=== PATIENT | female | born 1990 | race Two or more races ===

== ENCOUNTER 2017-02-22 12:19 | Emergency (ER) | payer OTHER ==
[2017-02-22 12:34] VITALS: BP 124/73
--- NOTE | 2017-02-22 13:19 | UC ---
Throat Pain/Nasal Bobby HPI - HPI Summary HPI Summary: 26 YO FEMALE WITH SORE THROAT X 2-3 DAYS RUNNY NOSE NO F/C RARE COUGH NO CP OR SOB SCHEDULED FOR REPEAT CS ON 02/28/17 GOOD ACTIVITY NO CTXS - History of Current Complaint Chief Complaint: UCRespiratory Stated Complaint: SORE THROAT Time Seen by Provider: 02/22/17 12:51 Hx Obtained From: Patient Hx Last Menstrual Period: 02/24/14 ?: Yes Onset/Duration: Gradual Onset Severity: Mild Pain Intensity: 4 Pain Scale Used: 0-10 Numeric Cough: Nonproductive - Allergies/Home Medications Allergies/Adverse Reactions: Allergies Allergy/AdvReac Type Severity Reaction Status Date / Time Sulfa Drugs Allergy Intermediate Hives Verified 01/24/17 21:57 Home Medications: Home Medications Acetaminophen [Tylenol] 02/22/17 [History] PMH/Surg Hx/FS Hx/Imm Hx Previously Healthy: Yes - Surgical History Surgical History: Yes Surgery Procedure, Year, and Place: 2005 [place]OS[place] [facility] [place] [facility] [place] 2009 CYSTOSCOPY, RIGHT RETROGRADE, RIGHT URETERAL STENT, [facility] [place]. 2010 [place], [facility] [place] - Family History Known Family History: Positive: Unknown - pt adopted, Other - pt adopted - Social History Alcohol Use: None Substance Use Type: None Smoking Status (MU): Never Smoked Tobacco Have You Smoked in the Last Year: No Review of Systems Constitutional: Negative Skin: Negative Eyes: Negative ENT: Sore Throat, Nasal Discharge Respiratory: Cough Cardiovascular: Negative Gastrointestinal: Negative Genitourinary: Negative Motor: Negative Neurovascular: Negative Musculoskeletal: Negative Neurological: Negative Psychological: Negative Is Patient Immunocompromised?: No All Other Systems Reviewed And Are Negative: Yes Physical Exam Triage Information Reviewed: Yes Appearance: Well-Appearing, No Pain Distress, Well-Nourished Vital Signs: Initial Vital Signs Temp 99.4 F 02/22/17 12:29 Pulse 97 02/22/17 12:29 Resp 18 02/22/17 12:29 BP 124/73 02/22/17 12:29 Pulse Ox 97 02/22/17 12:29 Vital Signs Reviewed: Yes Eyes: Positive: Conjunctiva Clear ENT: Positive: Hearing grossly normal, Uvula midline. Negative: Nasal congestion, Nasal drainage, Tonsillar swelling, Tonsillar exudate Neck: Positive: Supple, Nontender, No Lymphadenopathy Respiratory: Positive: Lungs clear, Normal breath sounds, No respiratory distress, No accessory muscle use Cardiovascular: Positive: RRR, No Murmur Abdominal Exam: Normal Abdomen Description: Positive: Other: - GRAVID UTERUS Musculoskeletal Exam: Normal Neurological: Positive: Alert Psychological Exam: Normal Skin Exam: Normal Throat Pain/Nasal Course/Dx - Differential Dx/Diagnosis Provider Diagnoses: VIRAL URI Discharge - Discharge Plan Condition: Stable Disposition: HOME Patient Education Materials: Pharyngitis (ED) Referrals: No Primary Care Phys,NOPCP [Primary Care Provider] - Additional Instructions: strep test (-) RECHECK FOR NEW OR WORSENING SYMPTOMS
== END 2017-02-22 13:23 | disposition home or self-care (01) ==
LOC: UCEAST 12:19
DX: O99.519 Diseases of the respiratory system complicating pregnancy, unspecified trimester (principal); J06.9 Acute upper respiratory infection, unspecified
CPT/HCPCS: 87651; 99211; G0463

== ENCOUNTER 2017-02-28 08:57 | Inpatient (IN) | payer OTHER ==
[2017-02-28] MEDS ORDERED: ceFOXitin 2 GM IVPREMIX* 2 GM/50 ML BAG IVPB ONE (09:08)
[2017-02-28] MEDS ORDERED: Midazolam* 1 MG/ML 5 ML VIAL (5 MG) ONE (09:30)
[2017-02-28] MEDS ORDERED: KETAMINE HCL* 50 MG/ML 10 ML VIAL ONE (09:30)
[2017-02-28] MEDS ORDERED: fentaNYL* 50 MCG/ML 2 ML VIAL (100 MCG VIAL) ONE (09:30)
[2017-02-28] MEDS ORDERED: Morphine PF AMP (0.5MG/ML)* 5 MG/10 ML AMP ONE (09:30)
[2017-02-28] MEDS ORDERED: Naloxone* 2 MG in NS 0.9% 250 ML* 250 ML IV PRN (10:12)
[2017-02-28] MEDS ORDERED: DiMENhydriNATE IV* 50 MG/ML VIAL IV PUSH PRN (10:12)
[2017-02-28] MEDS ORDERED: PROCHLORPERAZINE INJ 5 MG/ML 2 ML VIAL IV PRN (10:12)
[2017-02-28] MEDS ORDERED: Ondansetron INJ* 2 MG/ML VIAL IV PRN (10:12)
[2017-02-28] MEDS ORDERED: Naloxone* 0.4 MG/ML 1 ML VIAL IV PRN (10:12)
[2017-02-28] MEDS ORDERED: Scopolamine PATCH Remove* 1 NOTE MISC PATCH OFF PRN (10:12)
[2017-02-28] MEDS ORDERED: Scopolamine 1.5 mg* PATCH ONE (10:14)
[2017-02-28] MEDS ORDERED: Ketorolac INJ* 30 MG/ML 1 ML VIAL ONE (10:15)
[2017-02-28] MEDS ORDERED: Phenylephrine INJ* 10 MG/ML 1 ML VIAL (10 MG) ONE (10:15)
[2017-02-28] MEDS ORDERED: Famotidine IV* 10 MG/ML 2 ML (20 mg) ONE (10:15)
[2017-02-28] MEDS ORDERED: EPHEDrine (Pressors)* 50 MG/ML VIAL ONE (10:15)
[2017-02-28] MEDS ORDERED: OXYTOCIN* 10 UNITS/ML 1 ML VIAL ONE (10:15)
[2017-02-28] MEDS ORDERED: Ondansetron INJ* 2 MG/ML VIAL ONE (10:15)
[2017-02-28] MEDS ORDERED: Dexamethasone IV* 4 MG/ML 1 ML (4 MG) ONE (10:15)
[2017-02-28] MEDS ORDERED: fentaNYL* 50 MCG/ML 2 ML VIAL (100 MCG VIAL) IV PRN (10:16)
[2017-02-28] MEDS ORDERED: Glycerin ADULT SUPP PR PRN (10:57)
[2017-02-28] MEDS ORDERED: Dibucaine 1% 28.35 GM TUBE PR PRN (10:57)
[2017-02-28] MEDS ORDERED: Witch Hazel PAD* JAR TOPICAL PRN (10:57)
--- NOTE | 2017-02-28 13:02 | OP ---
DATE OF OPERATION: 02/28/17 - ROOM #[id number]-117 DATE OF : 86 SURGEON: Rodolfo Nj MD [facility] COORDINATOR: Tracy Herron, [employer]. ANESTHESIOLOGIST: Daniel Parker MD ANESTHESIA: Spinal. PRE-OP DIAGNOSES: Intrauterine of 40 weeks with a prior section, BMI of 38 and macrosomia on ultrasound. POST-OP DIAGNOSES: Intrauterine of 40 weeks with a prior section, BMI of 38 and macrosomia on ultrasound. OPERATIVE PROCEDURE: Repeat low transverse caesarean section with vacuum assistance of delivery of the head. ESTIMATED BLOOD LOSS: 600 cc. SPECIMEN SENT TO PATHOLOGY: Cord blood. FLUIDS: She received 2500 cc of IV crystalloid fluid. URINE OUTPUT: 50 cc of clear urine. FINDINGS: Delivery of a male infant weighing 9 pounds 10 ounces with 's of 9 and 9. The uterus, adnexa, bowel, bladder, fallopian tubes and ovaries were within normal limits. The placenta was grossly intact with a 3 vessel cord noted. There were no complications during this procedure. DESCRIPTION OF PROCEDURE: The patient was taken to the operating room, where she was identified. She was placed on the operating table where a spinal anesthetic was obtained without difficulty. She was placed in the supine position with leftward tilt, prepped and draped in a normal sterile fashion. A Pfannenstiel skin incision was made with a knife and extended inferiorly through the fascia. The fascia was nicked in the midline and extended laterally with curved Angulo scissors. This fascia was then grasped superiorly and inferiorly with Shreya clamps and dissected off sharply from the rectus muscle. The rectus muscle was in the midline bluntly. The peritoneum was identified, grasped with pickups, and entered sharply with Metzenbaum and extended superiorly and inferiorly sharply. At this point, a bladder flap was created using Metzenbaum scissors and the bladder was mobilized away from the low uterine segment bluntly. Abdominal retraction ring was inserted. At this point, a low transverse incision was made with a knife, extended laterally with bandage scissors. The amniotic sac was ruptured. The fluid was noted to be clear. The 's head was then brought up to the incision. There was some difficulty removing the head because of its size, so a vacuum was placed on the head and the head was delivered with the vacuum assistance atraumatically. At this point, the rest of the infant's body was then delivered. The cord was clamped and cut and the was handed off to the awaiting wet silk hanger. Cord bloods were obtained. The placenta was removed manually. The uterus was then exteriorized, cleared of all clots and debris. The uterine incision was then closed using 0 Polysorb suture in a running locked fashion with the second imbricating layer of 0 Polysorb suture with good hemostasis noted. The uterus was then returned to the patient's abdomen. The gutters were then cleared of all clot and debris using moist laparotomy sponges. The abdominal retractor ring was removed at this point. The peritoneum was closed using 3-0 Polysorb suture. The fascia was closed using 0 Polysorb suture in a running fashion. The Radha's fascia was closed using interrupted 3-0 sutures and the skin was closed with 4-0 Monocryl subcuticular stitch. The patient tolerated the procedure well. Sponge, lap and needle counts were correct x2. She was then transferred to recovery room area in stable condition. [id number]/[facility] #: [id number] HOLLY
[2017-02-28] MEDS: Docusate CAP* 100 MG PO SCH ×2 (13:09→21:18)
[2017-02-28] MEDS: Simethicone TAB* 80 MG TAB.CHEW PO SCH ×3 (13:09→21:18)
[2017-02-28] MEDS: Ibuprofen TAB* 600 MG PO SCH ×2 (13:10→18:21)
[2017-02-28] MEDS: oxyCODONE/Acetamin 5/325 MG* TAB PO PRN ×2 (13:14→22:41)
[2017-02-28] MEDS: Nalbuphine* 20 MG/ML 1 ML VIAL IV PRN ×2 (13:15→19:53)
[2017-03-01] MEDS ORDERED: Zolpidem TAB* 5 MG PO PRN (01:55)
[2017-03-01] MEDS ORDERED: oxyCODONE/Acetamin 5/325 MG* TAB PO PRN (01:55)
[2017-03-01] MEDS: Ibuprofen TAB* 600 MG PO SCH (02:39)
[2017-03-01] MEDS: Ibuprofen TAB* 600 MG PO PRN ×3 (07:52→20:20)
[2017-03-01] MEDS: Docusate CAP* 100 MG PO SCH ×3 (07:52→20:20)
[2017-03-01] MEDS: Simethicone TAB* 80 MG TAB.CHEW PO SCH ×4 (07:52→20:20)
[2017-03-01] MEDS: oxyCODONE/Acetamin 5/325 MG* TAB PO PRN ×3 (07:53→18:47)
[2017-03-01 09:01] LABS: ABS Basophils 0 10^3/ul (0-0.2); ABS Eosinophils 0 10^3/ul (0-0.6); ABS Lymphocytes 2.5 10^3/ul (1.0-4.8); ABS Monocytes 0.8 10^3/ul (0-0.8); ABS Nucleated RBC 0 10^3/ul; Eosinophil % 0.3 % (0-6); Hematocrit 29 % (35-47); Lymphocyte % 18.6 % (25-47); Mean Corpuscular HGB Conc 34 g/dl (31-36); Mean Corpuscular Hemoglobin 31 pg (27-31); Mean Corpuscular Volume 90 fL (80-97); Mean Platelet Volume 8 um3 (7.4-10.4); Nucleated Red Blood Cells % 0; Platelet Count 228 10^3/ul (150-450); Red Blood Count 3.23 10^6/ul (4.0-5.4); Red Cell Distribution Width 15 % (10.5-15); White Blood Count 13.4 10^3/ul (3.5-10.8)
[2017-03-01] MEDS: Ferrous Gluconate TAB* 324 MG TAB PO SCH ×2 (10:09→20:19)
[2017-03-01] MEDS: Acetaminophen TAB* 325 MG PO PRN (12:05)
[2017-03-02] MEDS: Ibuprofen TAB* 600 MG PO PRN ×3 (02:50→14:51)
[2017-03-02] MEDS: oxyCODONE/Acetamin 5/325 MG* TAB PO PRN ×4 (02:51→21:05)
[2017-03-02] MEDS: Simethicone TAB* 80 MG TAB.CHEW PO SCH ×4 (08:34→21:05)
[2017-03-02] MEDS: Ferrous Gluconate TAB* 324 MG TAB PO SCH ×2 (08:34→21:05)
[2017-03-02] MEDS: Docusate CAP* 100 MG PO SCH ×3 (08:34→21:05)
[2017-03-03] MEDS: oxyCODONE/Acetamin 5/325 MG* TAB PO PRN (01:10)
[2017-03-03] MEDS: Ibuprofen TAB* 600 MG PO PRN ×2 (01:11→08:33)
[2017-03-03] MEDS: Ferrous Gluconate TAB* 324 MG TAB PO SCH (08:33)
[2017-03-03] MEDS: Docusate CAP* 100 MG PO SCH (08:33)
[2017-03-03] MEDS: Acetaminophen TAB* 325 MG PO PRN (08:34)
[2017-03-03] MEDS: Simethicone TAB* 80 MG TAB.CHEW PO SCH (08:34)
[2017-03-03 08:37] VITALS: BP 111/62
== END 2017-03-03 12:45 | disposition home or self-care (01) | DRG 540 ==
LOC: MCHOB 08:57
PROVIDERS: ADMIT Obstetrics & Gynecology; ATTEND Obstetrics & Gynecology
PROC: 4A1HX4Z Monitoring of Products of Conception, Cardiac Electrical Activity, External Approach (ICD-10-PCS; 2017-02-28)
PROC: 10D00Z1 Extraction of Products of Conception, Low, Open Approach (ICD-10-PCS; principal; 2017-02-28 09:00)
DX: O34.211 Maternal care for low transverse scar from previous cesarean delivery (principal); O36.63X0 Maternal care for excessive fetal growth, third trimester, not applicable or unspecified; O48.0 Post-term pregnancy; O90.81 Anemia of the puerperium; Z3A.40 40 weeks gestation of pregnancy; Z37.0 Single live birth; Z88.2 Allergy status to sulfonamides
CPT/HCPCS: 36415; 85025; A9270-GY; J0694; J1100; J1240; J1885; J2250; J2300; J2405; J2590; J3010

== ENCOUNTER 2017-05-07 13:49 | Emergency (ER) | payer OTHER ==
[2017-05-07 15:35] LABS: ABS Basophils 0 10^3/ul (0-0.2); ABS Eosinophils 0.1 10^3/ul (0-0.6); ABS Lymphocytes 1.2 10^3/ul (1.0-4.8); ABS Monocytes 0.4 10^3/ul (0-0.8); ABS Neutrophils 7.5 10^3/ul (1.5-7.7); ABS Nucleated RBC 0 10^3/ul; Hematocrit 39 % (35-47); Hemoglobin 12.6 g/dl (12.0-16.0); Lymphocyte % 12.8 % (25-47); Mean Corpuscular HGB Conc 33 g/dl (31-36); Mean Corpuscular Hemoglobin 29 pg (27-31); Mean Corpuscular Volume 88 fL (80-97); Mean Platelet Volume 7 um3 (7.4-10.4); Nucleated Red Blood Cells % 0.1; Platelet Count 264 10^3/ul (150-450); Red Blood Count 4.38 10^6/ul (4.0-5.4); Red Cell Distribution Width 15 % (10.5-15); White Blood Count 9.2 10^3/ul (3.5-10.8)
[2017-05-07 15:53] LABS: EGFR Non-African American 108.5 (>60)
[2017-05-07] MEDS ORDERED: Ketorolac INJ* 30 MG/ML 1 ML VIAL IV ONE (16:45)
--- NOTE | 2017-05-07 17:56 | RAD ---
CLINICAL HISTORY: Left flank pain COMPARISON: March 09, 2013 TECHNIQUE: Multiple contiguous axial CT scans were obtained of the abdomen and pelvis, without intravenous contrast enhancement. Coronal and sagittal multiplanar reformations are submitted for review. Oral contrast was not administered. FINDINGS: The study is limited by the lack of intravenous contrast. This limits evaluation of the solid organs and vasculature. LUNG BASES: The lung bases are clear. LIVER: The liver is normal in shape, size, contour, and attenuation. BILE DUCTS: There is no intrahepatic or extrahepatic biliary dilatation. GALLBLADDER: The gallbladder is not visualized. Surgical clips are noted in the gallbladder fossa. PANCREAS: The pancreas is normal, without mass or ductal dilatation. SPLEEN: Normal in size and appearance. UPPER GI TRACT: Evaluation of the gastrointestinal tract is limited by incomplete gastric distention. The upper GI tract is unremarkable. SMALL BOWEL AND MESENTERY: The small bowel is normal in contour, course, and caliber. There is no obstruction or dilatation. COLON: The colon is normal in contour, course, caliber. There is no pericolonic inflammatory change. ADRENALS: Normal bilaterally. KIDNEYS: There are multiple renal calyceal stones bilaterally. There is a 0.6 cm calculus of the left renal pelvis. There is mild caliectasis of the upper pole of the left kidney. BLADDER: The bladder is smooth in contour. PELVIC ORGANS: The uterus and adnexa are grossly normal for technique. AORTA: The aorta is normal. IVC: Unremarkable LYMPH NODES: There is no lymphadenopathy by size criteria. ABDOMINAL WALL: There is no evidence for abdominal wall hernia. BONES AND SOFT TISSUES: Unremarkable OTHER: None IMPRESSION: BILATERAL NEPHROLITHIASIS INCLUDING A 0.6 CM CALCULUS OF THE LEFT RENAL PELVIS. THERE IS MILD CALIECTASIS OF THE UPPER POLE OF THE LEFT KIDNEY.
[2017-05-07 18:34] LABS: Urine Appearance Cloudy; Urine Blood 3+ (Negative); Urine Color Yellow; Urine Ketones Trace (Negative); Urine Protein 1+(30 mg/dL) (Negative); Urine Specific Gravity 1.021 (1.010-1.030); Urine Urobilinogen Negative (Negative)
[2017-05-07 19:25] VITALS: BP 117/66
--- NOTE | 2017-05-08 11:52 | ED ---
Elizabeth Bowen Jason, scribed for Segun Garibay MD on 05/07/17 at 1442 . Abdominal Pain/Female - HPI Summary HPI Summary: This patient is a 26 year old F presenting to [facility] accompanied with a chief complaint of left flank pain since today. The patient states she is experiencing abdominal pain in her LLQ that radiates to her back. She includes at times it feels like period cramps and other times its a sharp pain. She has been experiencing a cramping pain for 3 days and the sharp pain started today. The patient rates the pain 0/10 in severity. Symptoms aggravated by nothing. Symptoms alleviated by nothing. Patient reports mild pain when urinating and blood. Patient denies bowel sx. She has not had a menstrual period since giving 2 months ago. Her only surgery is a . - History of Current Complaint Chief Complaint: EDAbdPain Stated Complaint: ABD PAIN Time Seen by Provider: 05/07/17 14:16 Hx Obtained From: Patient Hx Last Menstrual Period: 02/24/14 Onset/Duration: Gradual Onset, Lasting Days - 1 day, Still Present Timing: Constant Pain Intensity: 8 Pain Scale Used: 0-10 Numeric Location: Discrete At: LLQ Radiates: Yes Radiates to: Back Aggravating Factor(s): Nothing Alleviating Factor(s): Nothing Allergies/Adverse Reactions: Allergies Allergy/AdvReac Type Severity Reaction Status Date / Time MS Sulfa Drugs [Sulfa Drugs] Allergy Intermediate Hives Verified 02/28/17 11:37 PMH/Surg Hx/FS Hx/Imm Hx Previously Healthy: No Endocrine/Hematology History: Denies: Hx Diabetes, Hx Thyroid Disease Cardiovascular History: Denies: Hx Hypertension Respiratory History: Reports: Hx Asthma - A CHILD, NO PROBLEMS NOW, Hx Sleep Apnea - HX OF, NO PROBLEM AFTER T&A Denies: Hx Chronic Obstructive Pulmonary Disease (COPD) GI History: Denies: Hx Ulcer History: Reports: Hx Kidney Stones - HX OF - PASSED Sensory History: Reports: Hx Contacts or Glasses - CONTACTS, NO GLASSES Denies: Hx Hearing Aid Opthamlomology History: Reports: Hx Contacts or Glasses - CONTACTS, NO GLASSES Neurological History: Reports: Hx Migraine - OCCASIONAL - Surgical History Surgery Procedure, Year, and Place: 2006 LAPAROSCOPIC CHOLECYST[place]OMY, [facility] [place]. [place]ONSILECTOMY AND ADENOIDECTOMY, [facility] [place]. 2010 CYSTOSCOPY, RIGHT RETROGRADE, RIGHT URETERAL STENT, [facility] [place]. 2009 CSECTION, [facility] [place] Hx Anesthesia Reactions: No - Immunization History Date of Tetanus Vaccine: Unk Date of Influenza Vaccine: None Infectious Disease History: No Infectious Disease History: Denies: Hx Clostridium Difficile, Hx Hepatitis, Hx Human Immunodeficiency Virus (HIV), Hx of Known/Suspected MRSA, Hx Shingles, Hx Tuberculosis, Hx Known/ Suspected VRE, Hx Known/Suspected VRSA, History Other Infectious Disease, Traveled Outside the [place] in Last 30 Days - Family History Known Family History: Positive: Unknown - pt adopted, Other - pt adopted - Social History Alcohol Use: None Substance Use Type: Reports: None Smoking Status (MU): Never Smoked Tobacco Have You Smoked in the Last Year: No Review of Systems Gastrointestinal: Negative - bowel sx Positive: Abdominal Pain - LLQ Positive: flank pain - left, hematuria, pain All Other Systems Reviewed And Are Negative: Yes Physical Exam - Summary Physical Exam Summary: Appearance: The patient is well-nourished in no acute distress and in no acute pain. Skin: The skin is warm and dry and skin color reflects adequate perfusion. HEENT: ~The head is normocephalic and atraumatic. The pupils are equal and reactive. The conjunctivae are clear and without drainage. ~Nares are patent and without drainage. Mouth reveals moist mucous membranes and the throat is without erythema and exudate. The external ears are intact. The ear canals are patent and without drainage. The tympanic membranes are intact. Neck: the neck is supple with full range of motion and non-tender. There are no carotid bruits. ~There is no neck vein distension. Respiratory: Chest is non-tender. ~Lungs are clear to auscultation and breath sounds are symmetrical and equal. Cardiovascular: Heart is regular rate and rhythm. ~There is no murmur or rub auscultated. ~~There is no peripheral edema and pulses are symmetrical and equal. Abdomen: Mild tenderness in the LLQ. ~There are normal bowel sounds heard in all four quadrants and there is no organomegaly palpated. Musculoskeletal: There is no back tenderness noted. ~Extremities are non-tender with full range of motion. ~There is good capillary refill. There is no peripheral edema or calf tenderness elicited. Neurological: Patient is alert and oriented to person, place and time. ~The patient has symmetrical motor strength in all four extremities. ~Cranial nerves are grossly intact. Deep tendon reflexes are symmetrical and equal in all four extremities. Psychiatric: The patient has an appropriate affect and does not exhibit any anxiety or depression. Triage Information Reviewed: Yes Vital Signs On Initial Exam: Initial Vitals Temp Pulse Resp BP Pulse Ox 97.5 F 62 16 135/74 99 05/07/17 13:53 05/07/17 13:53 05/07/17 13:53 05/07/17 13:53 05/07/17 13:53 Vital Signs Reviewed: Yes Diagnostics - Vital Signs Vital Signs Temp Pulse Resp BP Pulse Ox 05/07/17 13:53 97.5 F 62 16 135/74 99 - Laboratory Lab Results: Lab Results 05/07/17 05/07/17 05/07/17 Range/Units 15:21 15:21 15:21 WBC 9.2 (3.5-10.8) 10^3/ul RBC 4.38 (4.0-5.4) 10^6/ul Hgb 12.6 (12.0-16.0) g/dl Hct 39 (35-47) % MCV 88 (80-97) fL MCH 29 (27-31) pg MCHC 33 (31-36) g/dl RDW 15 (10.5-15) % Plt Count 264 (150-450) 10^3/ul MPV 7 L (7.4-10.4) um3 Neut % (Auto) 81.8 (38-83) % Lymph % (Auto) 12.8 L (25-47) % Alger % (Auto) 4.2 (0-7) % Eos % (Auto) 1.0 (0-6) % Baso % (Auto) 0.2 (0-2) % Absolute Neuts (auto) 7.5 (1.5-7.7) 10^3/ul Absolute Lymphs (auto) 1.2 (1.0-4.8) 10^3/ul Absolute Monos (auto) 0.4 (0-0.8) 10^3/ul Absolute Eos (auto) 0.1 (0-0.6) 10^3/ul Absolute Basos (auto) 0 (0-0.2) 10^3/ul Absolute Nucleated RBC 0 10^3/ul Nucleated RBC % 0.1 Sodium 138 (133-145) mmol/L Potassium 3.9 (3.5-5.0) mmol/L Chloride 107 (101-111) mmol/L Carbon Dioxide 25 (22-32) mmol/L Anion Gap 6 (2-11) mmol/L BUN 14 (6-24) mg/dL Creatinine 0.65 (0.51-0.95) mg/dL Est GFR ( Amer) 139.6 (>60) Est GFR (Non-Af Amer) 108.5 (>60) BUN/Creatinine Ratio 21.5 H (8-20) Glucose 108 H (70-100) mg/dL Lactic Acid 0.6 (0.5-2.0) mmol/L Calcium 9.2 (8.6-10.3) mg/dL Total Bilirubin 1.10 H (0.2-1.0) mg/dL AST 41 H (13-39) U/L ALT 60 H (7-52) U/L Alkaline Phosphatase 85 (34-104) U/L C-Reactive Protein 3.75 (< 5.00) mg/L Total Protein 7.1 (6.4-8.9) g/dL Albumin 4.1 (3.2-5.2) g/dL Globulin 3.0 (2-4) g/dL Albumin/Globulin Ratio 1.4 (1-3) Lipase 20 (11.0-82.0) U/L Beta HCG, Quant < 0.60 mIU/mL Urine Color Urine Appearance Urine pH (5-9) Ur Specific [place] (1.010-1.030) Urine Protein (Negative) Urine Ketones (Negative) Urine Blood (Negative) Urine Nitrate (Negative) Urine Bilirubin (Negative) Urine Urobilinogen (Negative) Ur Leukocyte Esterase (Negative) Urine WBC (Auto) (Absent) Urine RBC (Auto) (Absent) Ur Squamous Epith Cells (Absent) Urine Bacteria (Absent) Urine Glucose (Negative) 05/07/17 Range/Units 18:18 WBC (3.5-10.8) 10^3/ul RBC (4.0-5.4) 10^6/ul Hgb (12.0-16.0) g/dl Hct (35-47) % MCV (80-97) fL MCH (27-31) pg MCHC (31-36) g/dl RDW (10.5-15) % Plt Count (150-450) 10^3/ul MPV (7.4-10.4) um3 Neut % (Auto) (38-83) % Lymph % (Auto) (25-47) % Alger % (Auto) (0-7) % Eos % (Auto) (0-6) % Baso % (Auto) (0-2) % Absolute Neuts (auto) (1.5-7.7) 10^3/ul Absolute Lymphs (auto) (1.0-4.8) 10^3/ul Absolute Monos (auto) (0-0.8) 10^3/ul Absolute Eos (auto) (0-0.6) 10^3/ul Absolute Basos (auto) (0-0.2) 10^3/ul Absolute Nucleated RBC 10^3/ul Nucleated RBC % Sodium (133-145) mmol/L Potassium (3.5-5.0) mmol/L Chloride (101-111) mmol/L Carbon Dioxide (22-32) mmol/L Anion Gap (2-11) mmol/L BUN (6-24) mg/dL Creatinine (0.51-0.95) mg/dL Est GFR ( Amer) (>60) Est GFR (Non-Af Amer) (>60) BUN/Creatinine Ratio (8-20) Glucose (70-100) mg/dL Lactic Acid (0.5-2.0) mmol/L Calcium (8.6-10.3) mg/dL Total Bilirubin (0.2-1.0) mg/dL AST (13-39) U/L ALT (7-52) U/L Alkaline Phosphatase (34-104) U/L C-Reactive Protein (< 5.00) mg/L Total Protein (6.4-8.9) g/dL Albumin (3.2-5.2) g/dL Globulin (2-4) g/dL Albumin/Globulin Ratio (1-3) Lipase (11.0-82.0) U/L Beta HCG, Quant mIU/mL Urine Color Yellow Urine Appearance Cloudy Urine pH 7.0 (5-9) Ur Specific [place] 1.021 (1.010-1.030) Urine Protein 1+(30 mg/dl) A (Negative) Urine Ketones Trace A (Negative) Urine Blood 3+ A (Negative) Urine Nitrate Negative (Negative) Urine Bilirubin Negative (Negative) Urine Urobilinogen Negative (Negative) Ur Leukocyte Esterase 1+ A (Negative) Urine WBC (Auto) Trace(0-5/hpf) (Absent) Urine RBC (Auto) 3+(>10/hpf) A (Absent) Ur Squamous Epith Cells Present A (Absent) Urine Bacteria Absent (Absent) Urine Glucose Negative (Negative) Result Diagrams: 05/07/17 15:21 05/07/17 15:21 Lab Statement: Any lab studies that have been ordered have been reviewed, and results considered in the medical decision making process. - CT abdomen/pelvis CT Interpretation Completed By: Radiologist - BILATERAL NEPHROLITHIASIS INCLUDING A 0.6 CM CALCULUS OF THE LEFT RENAL PELVIS. THERE IS MILD CALIECTASIS OF THE UPPER POLE OF THE LEFT KIDNEY. ED physician has reviewed this radiology report. Abdominal Pain Fem Course/Dx - Course Course Of Treatment: Ms. Del Rio presented with left flank pain and hematuria about two months post . She has not had a period yet. Her U/A was negative for infection. CT showed a 6mm left UPJ stone. She may not be able to pass this and I suggested standard treatment but close F/U with urology. - Diagnoses Provider Diagnoses: Calculus of left kidney Discharge - Discharge Plan Condition: Stable Disposition: HOME Prescriptions: HYDROcodone/ACETAMIN 5-325 MG* [[place] 5-325 TAB*] 1 tab PO Q6H PRN #20 tab MDD 4 PRN Reason: Pain Patient Education Materials: Kidney Stones (ED), Flank Pain (ED) Referrals: No Primary Care Phys,NOPCP [Primary Care Provider] - Gabriel Prakash MD [Medical Doctor] - 3 Days (Call the office and follow up with Dr. Prakash within 3 days.) Additional Instructions: RETURN TO THE EMERGENCY DEPARTMENT FOR CHANGING OR WORSENING SYMPTOMS. The documentation as recorded by the Elizabeth acosta Jason accurately reflects the service I personally performed and the decisions made by me, Segun Garibay MD.
== END 2017-05-07 19:33 | disposition home or self-care (01) ==
LOC: ED 13:49
DX: N20.0 Calculus of kidney (principal); Z88.2 Allergy status to sulfonamides
CPT/HCPCS: 36415; 74176; 80053; 81003; 81015; 83605; 83690; 84702; 85025; 86140; 87086; 96374; 99283; J1885

== ENCOUNTER 2017-07-05 18:53 | Observation (INO) | payer OTHER ==
[2017-07-05] MEDS ORDERED: Ketorolac INJ* 30 MG/ML 1 ML VIAL IV ONE ×2 (19:15→20:31)
[2017-07-05] MEDS: NS 0.9% 1000 ML* 2,000 ML IV ONE (19:36)
[2017-07-05 19:49] LABS: ABS Basophils 0 10^3/ul (0-0.2); ABS Eosinophils 0.2 10^3/ul (0-0.6); ABS Lymphocytes 2.3 10^3/ul (1.0-4.8); ABS Monocytes 0.6 10^3/ul (0-0.8); ABS Neutrophils 6.2 10^3/ul (1.5-7.7); ABS Nucleated RBC 0 10^3/ul; Eosinophil % 1.7 % (0-6); Hematocrit 40 % (35-47); Hemoglobin 13.7 g/dl (12.0-16.0); Lymphocyte % 25.1 % (25-47); Mean Corpuscular HGB Conc 34 g/dl (31-36); Mean Corpuscular Hemoglobin 29 pg (27-31); Mean Corpuscular Volume 85 fL (80-97); Mean Platelet Volume 7.5 um3 (7.4-10.4); Nucleated Red Blood Cells % 0; Platelet Count 257 10^3/ul (150-450); Red Blood Count 4.74 10^6/ul (4.0-5.4); Red Cell Distribution Width 16 % (10.5-15); White Blood Count 9.3 10^3/ul (3.5-10.8)
[2017-07-05 19:55] LABS: Urine Appearance Clear; Urine Blood 2+ (Negative); Urine Color Straw; Urine Ketones Negative (Negative); Urine Protein Negative (Negative); Urine Red Blood Cell 3+(>10/hpf) (Absent); Urine Specific Gravity 1.014 (1.010-1.030); Urine Urobilinogen Negative (Negative); Urine White Blood Cell 1+(6-10/hpf) (Absent)
[2017-07-05 20:00] LABS: INR 0.84 (0.77-1.02)
[2017-07-05 20:04] LABS: EGFR Non-African American 63.8 (>60)
--- NOTE | 2017-07-05 20:11 | RAD ---
CLINICAL HISTORY: Left flank pain in a patient with a history of kidney stones. Relevant surgical history includes cholecystectomy and history of right ureteral stent placement. COMPARISON: Most recent CT of the abdomen and pelvis is dated May 07, 2017 TECHNIQUE: Noncontrast CT examination of the abdomen and pelvis from the lung bases through the initial tuberosities. FINDINGS: VISUALIZED LUNG BASES: The visualized lung bases are grossly clear. There is no pleural effusion. ABDOMEN AND PELVIS: Evaluation of the solid organs and vasculature is limited without intravenous contrast. The liver is mildly enlarged measuring 20.9 cm in greatest cephalocaudal dimension. The liver is homogenously hypodense relative to the spleen. The spleen, pancreas and adrenal glands are grossly normal in appearance. The gallbladder is surgically absent with surgical clips in the gallbladder fossa. There is nonobstructive calcification at the upper pole of the right kidney measuring 2 mm in greatest dimension. There is at least one punctate calcification in the left kidney. There is a moderate degree of left-sided hydronephrosis. At the distal left ureter there is a calcification measuring 10 mm in greatest cephalocaudal dimension (coronal image 72 and axial image 57) that corresponds to a similar size calcification seen on the previous CT examination in the left renal collecting system. The small and large bowel are not distended.The patient's normal appendix is identified in the right lower quadrant. There is no gross retroperitoneal or mesenteric lymphadenopathy. The pelvic viscera is normal in appearance. The abdominal aorta and iliac arteries are normal in course and diameter. There are no sinister bone lesions. IMPRESSION: 1. At the distal left ureter there is a 10 mm calcification with ipsilateral moderate hydroureter nephrosis. This calcification corresponds to the calcification seen on the May 07, 2017 CT examination that was then located in the left collecting system. 2. Additional nonobstructing punctate calcifications. 3. Mild hepatomegaly with likely hepatic steatosis.
[2017-07-05] MEDS ORDERED: Senna TAB PO PRN (22:05)
[2017-07-05] MEDS ORDERED: Acetaminophen TAB* 325 MG PO PRN (22:05)
[2017-07-05] MEDS ORDERED: Morphine VIAL* 4 MG/ML VIAL (1 ml vial) IV ONE (22:05)
[2017-07-05] MEDS ORDERED: Al Hydrox/Mg Hydrox/Simet LIQ* 30 ML UDC PO PRN (22:05)
[2017-07-05] MEDS ORDERED: Docusate CAP* 100 MG PO PRN (22:05)
[2017-07-05] MEDS ORDERED: Ondansetron INJ* 2 MG/ML VIAL IV PRN (22:05)
[2017-07-05] MEDS ORDERED: Morphine VIAL* 4 MG/ML VIAL (1 ml vial) IV PRN (22:07)
[2017-07-05] MEDS ORDERED: Ketorolac INJ* 15 MG/ML 1 ML VIAL IV PUSH PRN (22:07)
[2017-07-05] MEDS ORDERED: Zolpidem TAB* 5 MG PO PRN (22:12)
[2017-07-05] MEDS ORDERED: cefTRIAXone(*) 2 GM in NS 0.9% 100 ML* 100 ML IVPB ONE (22:30)
[2017-07-05] MEDS ORDERED: Buffered Lidocaine 0.9% SYRIN* 5 ML/SYR SYRINGE INTRADERM ONE (23:19)
[2017-07-06] MEDS ORDERED: Ondansetron 40 MG VIAL* 2 MG/ML 20 ML VIAL IV PRN
[2017-07-06] MEDS ORDERED: Famotidine TAB* 20 MG PO ONE (05:00)
[2017-07-06 05:37] LABS: ABS Basophils 0 10^3/ul (0-0.2); ABS Eosinophils 0.2 10^3/ul (0-0.6); ABS Lymphocytes 2.2 10^3/ul (1.0-4.8); ABS Monocytes 0.8 10^3/ul (0-0.8); ABS Neutrophils 6.4 10^3/ul (1.5-7.7); ABS Nucleated RBC 0 10^3/ul; Eosinophil % 1.7 % (0-6); Hematocrit 37 % (35-47); Hemoglobin 12.6 g/dl (12.0-16.0); Lymphocyte % 23.2 % (25-47); Mean Corpuscular HGB Conc 34 g/dl (31-36); Mean Corpuscular Hemoglobin 29 pg (27-31); Mean Corpuscular Volume 85 fL (80-97); Mean Platelet Volume 7.6 um3 (7.4-10.4); Nucleated Red Blood Cells % 0; Platelet Count 228 10^3/ul (150-450); Red Blood Count 4.32 10^6/ul (4.0-5.4); Red Cell Distribution Width 15 % (10.5-15); White Blood Count 9.6 10^3/ul (3.5-10.8)
[2017-07-06] MEDS ORDERED: Iohexol 180 (CONTRAST) 10 ML SDV IV ONE (05:51)
[2017-07-06 05:56] LABS: EGFR Non-African American 79.6 (>60)
--- NOTE | 2017-07-06 06:23 | ED ---
David Bowen Rebecca, scribed for Sukhdeep Garrett MD on 07/05/17 at 1919 . Abdominal Pain/Female - HPI Summary HPI Summary: Pt is a 26 y/o F who presents to ED c/o L flank pain. Sx have been present for 2 weeks, intermittent since onset, presenting every other day. Pain is currently severe, ranked 10/10 and waxes and wanes in intensity. Described as aching with intermittent sharp, shooting sensations. Sx aggravated and alleviated by nothing, unchanged by movement. Additionally c/o nausea and hematuria. Denies fever, chills. Prior similar episode about 2 months ago with a Dx of kidney stones which she passed. PSHx cholecystectomy. Pt is . - History of Current Complaint Chief Complaint: EDFlankPain Stated Complaint: LT FLANK PAIN Time Seen by Provider: 07/05/17 19:05 Hx Obtained From: Patient Hx Last Menstrual Period: 02/24/14 Onset/Duration: Lasting Weeks - 2 weeks, Still Present Timing: Intermittent Episode Lasting Severity Currently: Severe Pain Intensity: 10 Pain Scale Used: 0-10 Numeric Location: Flank - Left Character: Sharp, Other: - Aching Aggravating Factor(s): Nothing Alleviating Factor(s): Nothing Associated Signs and Symptoms: Positive: Nausea, Other: - Hematuria. Negative: Fever Allergies/Adverse Reactions: Allergies Allergy/AdvReac Type Severity Reaction Status Date / Time Sulfa (Sulfonamide Allergy Hives Verified 07/05/17 18:58 Antibiotics) Home Medications: Home Medications NK [No Home Medications Reported] 07/05/17 [History Confirmed 07/05/17] PMH/Surg Hx/FS Hx/Imm Hx Endocrine/Hematology History: Denies: Hx Diabetes, Hx Thyroid Disease Cardiovascular History: Denies: Hx Hypertension Respiratory History: Reports: Hx Asthma - A CHILD, NO PROBLEMS NOW, Hx Sleep Apnea - HX OF, NO PROBLEM AFTER T&A Denies: Hx Chronic Obstructive Pulmonary Disease (COPD) GI History: Denies: Hx Ulcer History: Reports: Hx Kidney Stones - HX OF - PASSED Sensory History: Reports: Hx Contacts or Glasses - CONTACTS, NO GLASSES Denies: Hx Hearing Aid Opthamlomology History: Reports: Hx Contacts or Glasses - CONTACTS, NO GLASSES Neurological History: Reports: Hx Migraine - OCCASIONAL - Surgical History Surgery Procedure, Year, and Place: 2006 LAPAROSCOPIC CHOLECYSTECTOMY, [facility] [place]. TONSILECTOMY AND ADENOIDECTOMY, [facility] [place]. 2009 CYSTOSCOPY, RIGHT RETROGRADE, RIGHT URETERAL STENT, [facility] [place]. 2010 CSECTION, [facility] [place] Hx Anesthesia Reactions: No - Immunization History Date of Tetanus Vaccine: Unk Date of Influenza Vaccine: None Infectious Disease History: No Infectious Disease History: Denies: Hx Clostridium Difficile, Hx Hepatitis, Hx Human Immunodeficiency Virus (HIV), Hx of Known/Suspected MRSA, Hx Shingles, Hx Tuberculosis, Hx Known/ Suspected VRE, Hx Known/Suspected VRSA, History Other Infectious Disease, Traveled Outside the in Last 30 Days - Family History Known Family History: Positive: Unknown - pt adopted - Social History Alcohol Use: None Substance Use Type: Reports: None Smoking Status (MU): Never Smoked Tobacco Have You Smoked in the Last Year: No Review of Systems Negative: Fever, Chills Positive: Nausea Positive: flank pain - eft, hematuria All Other Systems Reviewed And Are Negative: Yes Physical Exam - Summary Physical Exam Summary: General: well-appearing, mild pain distress Skin: warm, color reflects adequate perfusion, dry Head: normal Eyes: EOMI, JACINTO ENT: normal Neck: supple, nontender Respiratory: CTA, breath sounds present Cardiovascular: RRR Abdomen: soft, left flank tenderness Bowel: present Musculoskeletal: normal, strength/ROM intact Neurological: normal, sensory/motor intact, A&O x3 Psychological: affect/mood appropriate Triage Information Reviewed: Yes Vital Signs On Initial Exam: Initial Vitals Temp Pulse Resp BP Pulse Ox 97.6 F 65 18 133/99 100 07/05/17 18:55 07/05/17 18:55 07/05/17 18:55 07/05/17 18:55 07/05/17 18:55 Vital Signs Reviewed: Yes Diagnostics - Vital Signs Vital Signs Temp Pulse Resp BP Pulse Ox 07/05/17 18:55 97.6 F 65 18 133/99 100 - Laboratory Lab Results: Lab Results 07/05/17 07/05/17 07/05/17 Range/Units 19:33 19:33 19:33 WBC 9.3 (3.5-10.8) 10^3/ul RBC 4.74 (4.0-5.4) 10^6/ul Hgb 13.7 (12.0-16.0) g/dl Hct 40 (35-47) % MCV 85 (80-97) fL MCH 29 (27-31) pg MCHC 34 (31-36) g/dl RDW 16 H (10.5-15) % Plt Count 257 (150-450) 10^3/ul MPV 7.5 (7.4-10.4) um3 Neut % (Auto) 66.4 (38-83) % Lymph % (Auto) 25.1 (25-47) % Sunflower % (Auto) 6.5 (0-7) % Eos % (Auto) 1.7 (0-6) % Baso % (Auto) 0.3 (0-2) % Absolute Neuts (auto) 6.2 (1.5-7.7) 10^3/ul Absolute Lymphs (auto) 2.3 (1.0-4.8) 10^3/ul Absolute Monos (auto) 0.6 (0-0.8) 10^3/ul Absolute Eos (auto) 0.2 (0-0.6) 10^3/ul Absolute Basos (auto) 0 (0-0.2) 10^3/ul Absolute Nucleated RBC 0 10^3/ul Nucleated RBC % 0 INR (Anticoag Therapy) 0.84 (0.77-1.02) APTT 38.3 H (26.0-36.3) seconds Sodium (139-145) mmol/L Potassium (3.5-5.0) mmol/L Chloride (101-111) mmol/L Carbon Dioxide (22-32) mmol/L Anion Gap (2-11) mmol/L BUN (6-24) mg/dL Creatinine (0.51-0.95) mg/dL Est GFR ( Amer) (>60) Est GFR (Non-Af Amer) (>60) BUN/Creatinine Ratio (8-20) Glucose (70-100) mg/dL Lactic Acid (0.5-2.0) mmol/L Calcium (8.6-10.3) mg/dL Total Bilirubin (0.2-1.0) mg/dL AST (13-39) U/L ALT (7-52) U/L Alkaline Phosphatase (34-104) U/L C-Reactive Protein (< 5.00) mg/L Total Protein (6.4-8.9) g/dL Albumin (3.2-5.2) g/dL Globulin (2-4) g/dL Albumin/Globulin Ratio (1-3) Lipase (11.0-82.0) U/L Beta HCG, Quant mIU/mL Urine Color Straw Urine Appearance Clear Urine pH 7.0 (5-9) Ur Specific [place] 1.014 (1.010-1.030) Urine Protein Negative (Negative) Urine Ketones Negative (Negative) Urine Blood 2+ A (Negative) Urine Nitrate Negative (Negative) Urine Bilirubin Negative (Negative) Urine Urobilinogen Negative (Negative) Ur Leukocyte Esterase 1+ A (Negative) Urine WBC (Auto) 1+(6-10/hpf) A (Absent) Urine RBC (Auto) 3+(>10/hpf) A (Absent) Ur Squamous Epith Cells Present A (Absent) Urine Bacteria Absent (Absent) Urine Glucose Negative (Negative) 07/05/17 07/05/17 Range/Units 19:33 19:33 WBC (3.5-10.8) 10^3/ul RBC (4.0-5.4) 10^6/ul Hgb (12.0-16.0) g/dl Hct (35-47) % MCV (80-97) fL MCH (27-31) pg MCHC (31-36) g/dl RDW (10.5-15) % Plt Count (150-450) 10^3/ul MPV (7.4-10.4) um3 Neut % (Auto) (38-83) % Lymph % (Auto) (25-47) % Sunflower % (Auto) (0-7) % Eos % (Auto) (0-6) % Baso % (Auto) (0-2) % Absolute Neuts (auto) (1.5-7.7) 10^3/ul Absolute Lymphs (auto) (1.0-4.8) 10^3/ul Absolute Monos (auto) (0-0.8) 10^3/ul Absolute Eos (auto) (0-0.6) 10^3/ul Absolute Basos (auto) (0-0.2) 10^3/ul Absolute Nucleated RBC 10^3/ul Nucleated RBC % INR (Anticoag Therapy) (0.77-1.02) APTT (26.0-36.3) seconds Sodium 140 (139-145) mmol/L Potassium 3.6 (3.5-5.0) mmol/L Chloride 104 (101-111) mmol/L Carbon Dioxide 27 (22-32) mmol/L Anion Gap 9 (2-11) mmol/L BUN 12 (6-24) mg/dL Creatinine 1.03 H (0.51-0.95) mg/dL Est GFR ( Amer) 82.1 (>60) Est GFR (Non-Af Amer) 63.8 (>60) BUN/Creatinine Ratio 11.7 (8-20) Glucose 104 H (70-100) mg/dL Lactic Acid 1.0 (0.5-2.0) mmol/L Calcium 9.5 (8.6-10.3) mg/dL Total Bilirubin 0.70 (0.2-1.0) mg/dL AST 82 H (13-39) U/L ALT 122 H (7-52) U/L Alkaline Phosphatase 121 H (34-104) U/L C-Reactive Protein 9.86 H (< 5.00) mg/L Total Protein 7.6 (6.4-8.9) g/dL Albumin 4.5 (3.2-5.2) g/dL Globulin 3.1 (2-4) g/dL Albumin/Globulin Ratio 1.5 (1-3) Lipase 34 (11.0-82.0) U/L Beta HCG, Quant < 0.60 mIU/mL Urine Color Urine Appearance Urine pH (5-9) Ur Specific [place] (1.010-1.030) Urine Protein (Negative) Urine Ketones (Negative) Urine Blood (Negative) Urine Nitrate (Negative) Urine Bilirubin (Negative) Urine Urobilinogen (Negative) Ur Leukocyte Esterase (Negative) Urine WBC (Auto) (Absent) Urine RBC (Auto) (Absent) Ur Squamous Epith Cells (Absent) Urine Bacteria (Absent) Urine Glucose (Negative) Result Diagrams: 07/06/17 04:49 07/06/17 04:49 Lab Statement: Any lab studies that have been ordered have been reviewed, and results considered in the medical decision making process. - CT CT Abd/Pel CT Interpretation: Positive (See Comments) - 1. At the distal left ureter there is a 10 mm calcification with ipsilateral moderate hydroureter nephrosis. This calcification corresponds to the calcification seen on the May 07, 2017 CT examination that was then located in the left collecting system. 2. Additional nonobstructing punctate calcifications. 3. Mild hepatomegaly with likely hepatic steatosis. ED physician reviewed this radiology report. CT Interpretation Completed By: Radiologist Re-Evaluation - Re-Evaluation First Eval Re-Evaluation Time: 21:05 Comment: Continues to have a lot of pain. Concerned about what medications she may receive due to . Will consult with urologist. Second Eval Re-Evaluation Time: 21:55 Comment: Discussed admission plan. Abdominal Pain Fem Course/Dx - Course Course Of Treatment: Medications reviewed. Allergies reviewed. DISCUSSED WITH DR DICKSON. ADMIT HOSPITALIST. - Diagnoses Provider Diagnoses: Kidney stone on left side - Provider Notifications Discussed Care Of Patient With: Dheeraj Dickson Time Discussed With Above Provider: 21:25 Instructed by Provider To: Other - Discussed care of pt with Dr. Estela Hope at 2130 who accepts pt for admission. Discussed care of pt with Dr. Dickson again at 2229 who stated he will take her into the OR at 0600. Discharge - Sign-Out/Discharge Documenting (check all that apply): Discharge/Admit/Transfer - Admit - Discharge Plan Condition: Stable Disposition: ADMITTED TO [facility] - Billing Disposition and Condition Condition: STABLE Disposition: [facility]P-[facility] [place] The documentation as recorded by the David acosta Rebecca accurately reflects the service I personally performed and the decisions made by me, Sukhdeep Garrett MD.
[2017-07-06] MEDS ORDERED: Propofol* 10 MG/ML 20 ML BTL IV PUSH ONE (06:46)
[2017-07-06] MEDS ORDERED: DiMENhydriNATE IV* 50 MG/ML VIAL ONE (06:46)
[2017-07-06] MEDS ORDERED: Ketorolac INJ* 30 MG/ML 1 ML VIAL ONE (06:46)
[2017-07-06] MEDS ORDERED: Dexamethasone IV* 4 MG/ML 1 ML (4 MG) ONE (06:46)
[2017-07-06] MEDS ORDERED: fentaNYL* 50 MCG/ML 2 ML VIAL (100 MCG VIAL) ONE (06:48)
[2017-07-06] MEDS ORDERED: Ondansetron INJ* 2 MG/ML VIAL IV PRN (07:03)
[2017-07-06] MEDS ORDERED: Acetaminophen TAB* 325 MG PO PRN (07:03)
[2017-07-06] MEDS ORDERED: Naloxone* 0.4 MG/ML 1 ML VIAL IV PRN (07:03)
[2017-07-06] MEDS ORDERED: fentaNYL* 50 MCG/ML 2 ML VIAL (100 MCG VIAL) IV PRN (07:03)
--- NOTE | 2017-07-06 07:16 | HP ---
HISTORY AND PHYSICAL: DATE OF ADMISSION: 07/05/17 TIME OF EVALUATION: 2200. PRIMARY CARE PROVIDER: The patient does not have primary care physician. CHIEF COMPLAINT: Left flank pain. HISTORY OF PRESENT ILLNESS: This is a 26-year-old female with past medical history of nephrolithiasis and morbid obesity who presents to the emergency room with worsening left-sided flank and groin pain. The patient states she has a history of kidney stones in the past. She states she was here about 2 months ago with a similar complaint. She was sent home from the emergency room. She states the pain slightly got better; however, in the past 2 weeks the pain has gotten worse off and on and now most recently to the point of intolerable. She has had nausea, vomiting. She did have hematuria earlier, no longer has that. She denies any dysuria. No fevers or chills. She has had some cramping mostly in the left lower quadrant of her abdomen. She denies any chest pain or shortness of breath. Otherwise, remainder of review of systems is negative. In the emergency room, the patient has labs and imaging. She was given a liter of normal saline and Toradol 15 mg and because she had just eaten at 1600, Urology felt it was better do a procedure on her tomorrow morning. PAST MEDICAL HISTORY: 1. Nephrolithiasis. 2. History of hepatic steatosis. MEDICATIONS: Ibuprofen as needed. ALLERGIES: SULFA, develops hives. FAMILY HISTORY: No family history of kidney stones. 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 She has a 4-month-old and 7-year-old. No history of alcohol or illicit drug use. She lives at home with her and her mother. Her is her health care proxy. REVIEW OF SYSTEMS: A 14-point review of systems is mentioned in the HPI, otherwise negative. PHYSICAL EXAMINATION GENERAL: No acute distress, resting comfortably. VITAL SIGNS: Temp 97.6, pulse rate 65, respiratory rate 18, oxygen saturation 100% on room air, blood pressure 133/99. HEENT: Head, normocephalic. Pupils equal and reactive, anicteric. Oropharynx : Mucous membranes are moist. NECK: Supple, no adenopathy. RESPIRATORY: Clear to auscultation. No wheeze, rhonchi or rales. CARDIAC: Regular rate and rhythm. Soft systolic murmur heard throughout. ABDOMEN: Soft, nondistended. She does have some left lower groin tenderness. No flank pain. EXTREMITIES: No clubbing, cyanosis or edema, +2 DPs. NEUROLOGIC: No chest pain. No gross focal neurologic deficits. LABORATORY DATA: White count 9.3, hemoglobin 13.7, hematocrit 40, platelets 257. INR was 0.84. Sodium 140, potassium 3.6, chloride 104, bicarb 27, BUN 12, creatinine 1.03. Glucose 104. AST 82, ALT 122, alk phos 121, CRP 9. HCG is negative. Urine shows 2+ blood, absent bacteria, +1 white, +[address] reds[address] Abdomen and pelvis CT: At the distal left ureter, there is a 10 mm calcification with ipsilateral mono hydroureteronephrosis. This calcification corresponds to calcification seen on 05/07/17. CT examination of left collecting system: Additional nonobstructing punctate calcifications, mild hepatomegaly with hepatic steatosis. ASSESSMENT: This is a 26-year-old female with past medical history of nephrolithiasis and morbid obesity presents to the emergency room with worsening left-sided flank pain who is found to have a 10 mm left ureter kidney stone. 1. Left ureter 10 mm kidney stone: Assessment: Dr. Aguilar is going to take her to the OR in the morning. In the interim, we will give her aggressive IV fluids, Toradol, morphine, have her strain her urine. She is still currently breast feeding. We talked about pumping and dumping while on narcotics. We will provide her breast pump while she is here. 2. Elevated liver function tests: It appears she has had elevated LFTs in past and her CAT scan shows steatosis. Plan: We will repeat a CMP in the morning to rule out rapid rise of her liver function studies. 3. FEN: The patient is n.p.o. with IV fluids. 4. DVT prophylaxis: The patient scores low risk. We will encourage ambulation. 5. Code status: Full code. PATIENT TIME: Greater than 45 minutes spent doing history and physical, more than half time spent in direct patient contact. [id number]/CPS #: [id number] MTDD
[2017-07-06 09:05] VITALS: BP 126/86
--- NOTE | 2017-07-06 14:18 | RAD ---
INDICATION: Left ureteral stent placement. COMPARISON: Correlation is made with a prior CT of the abdomen and pelvis from July 05, 2017. TECHNIQUE: 10 seconds of intermittent fluoroscopic guidance were provided and 7 spot films of the abdomen were centered on the left side. FINDINGS: There is partial opacification of the left renal collecting system. Subsequently there is placement of a double-J stent catheter on the left side which demonstrates normal course. IMPRESSION: INTRAOPERATIVE CONTROL FILMS. CPT II Codes: G9500
--- NOTE | 2017-07-07 01:49 | OP ---
DATE OF OPERATION: 07/06/17 - ROOM #331 DATE OF : 86 SURGEON: Dheeraj Aguilar MD ANESTHESIOLOGIST: Shari Jaime MD ANESTHESIA: General. PRE-OP DIAGNOSIS: Distal left ureteral calculus (1 cm). POST-OP DIAGNOSIS: Distal left ureteral calculus (1 cm). OPERATIVE PROCEDURE: Cystoscopy, left ureteroscopy, laser lithotripsy and left ureteral stent insertion (6-Guamanian). INDICATION FOR PROCEDURE: Ms. Del Rio is a 26-year-old female who presented to the emergency room last night with symptoms of left renal colic, and was noted on noncontrast CT of the abdomen and pelvis to have a 1-cm calculus in the distal left ureter associated with left hydronephrosis. The patient required several doses of IV pain medications for pain control. She is taken to the operating room for definitive treatment of the stone. PATHOLOGY AT CYSTOSCOPY: The bladder mucosa looked normal. There were no suspicious bladder lesions seen. At left ureteroscopy, a 1-cm calculus was noted in the distal left ureter about 2 cm proximal to the ureteral orifice. There was edema and hyperemia of the ureteral mucosa adjacent to the stent. The proximal ureter was dilated. Moderate hydronephrosis was noted. DESCRIPTION OF PROCEDURE: After successful general anesthesia, the patient was placed in the lithotomy position and was prepped and draped for cystoscopy. Cystoscopy was performed. The bladder was carefully inspected and the above findings were noted. A flexible tip guidewire was then introduced into the left orifice and positioned in the area of the renal pelvis. A size 6.5 semi- rigid ureteroscope was then introduced inside the bladder. A flexible tip basket was then introduced into the port of the ureteroscope and its flexible tip was introduced inside the left ureter alongside the guidewire. That allowed the atraumatic introduction of the ureteroscope inside the ureter. The calculus was identified. The basket was deployed proximal to the calculus to avoid its proximal migration. A 550 micron laser fiber was then introduced into the other port of the ureteroscope and the stone was then fragmented into multiple pieces. The stone fragments were then extracted using the basket. Ureteroscopy was then performed up into the proximal ureter and no stone fragments were noted. The inspection of the ureter at the site of the ureteroscopy showed the expected edema from the stone, but there was no evidence of any injury to the ureter or perforation. Retrograde pyelography was then performed. A size 6-Guamanian stent was then placed with the proximal end coiling in the renal pelvis and the distal end coiling inside the bladder. There was good drainage of contrast from the kidney. The patient tolerated the procedure well and left the operating room in good condition. The plan is to keep the stent in place for 7 to 10 days, it will be removed in the office under local anesthesia. The stone fragments were sent for chemical analysis. [id number]/[facility] #: [id number] [facility]ITALIsrael
--- NOTE | 2017-07-15 22:11 | DS ---
DISCHARGE SUMMARY: DATE OF ADMISSION: 07/05/17 DATE OF DISCHARGE: 07/06/17 FINAL DIAGNOSES: 1. Distal left ureteral calculus (1 cm). 2. Left renal colic due to above. OPERATION: 1. Cystoscopy. 2. Left ureteroscopy, laser lithotripsy and left ureteral stent insertion (6- Turkish). HISTORY: Ms. Del Rio is a 26-year-old female, who presented to the emergency room on the evening of her admission with symptoms of left renal colic. She reported having had a similar episode of pain 2 months earlier. She did not have any fever or chills. The patient was in pain, but her vital signs were normal and the positive finding was left flank tenderness. Her lab work showed microscopic hematuria. There was no sign of any infection or sepsis. She had a noncontrast CT of the abdomen and pelvis, which showed 1 cm calculus in the distal left ureter associated with left hydroureteronephrosis. She was admitted by Dr Hope to the hospitalist service, and a confutation obtained. HOSPITAL COURSE: The patient was admitted overnight for pain control and for hydration. Because of the size of the stone, she was taken to the operating room the following day and underwent an uncomplicated left ureteroscopy, laser lithotripsy and left ureteral stent insertion. She was observed in the recovery room, did well, and was discharged from there on ibuprofen as needed for pain. The plan is to see her back in the office in another week for stent removal. Instructions were given for followup care. [id number]/[facility] #: [id number] [place]
== END 2017-07-06 09:20 | disposition home or self-care (01) ==
LOC: ED 18:53 → SSU 22:05
PROVIDERS: ADMIT Pediatrics; ATTEND Urology
PROC: 0TC78ZZ Extirpation of Matter from Left Ureter, Via Natural or Artificial Opening Endoscopic (ICD-10-PCS; principal; 2017-07-05)
PROC: 0T778DZ Dilation of Left Ureter with Intraluminal Device, Via Natural or Artificial Opening Endoscopic (ICD-10-PCS; 2017-07-05)
DX: N20.1 Calculus of ureter (principal); E66.01 Morbid (severe) obesity due to excess calories; R11.0 Nausea; R10.84 Generalized abdominal pain; R31.9 Hematuria, unspecified; Z87.442 Personal history of urinary calculi; Z87.19 Personal history of other diseases of the digestive system
CPT/HCPCS: 36415; 74176; 74420; 80053; 81003; 81015; 81025; 82365; 83605; 83690; 84702; 85025; 85610; 85730; 86140; 87086; 88300; 96361; 96374; 96375; 99283; A9270-GY; C1876; G0378; J0696; J1100; J1240; J1885; J2270; J2704; J3010

== ENCOUNTER 2018-10-15 18:08 | Emergency (ER) | payer OTHER ==
[2018-10-15 18:20] VITALS: BP 130/94
[2018-10-15 18:36] LABS: Urine Appearance Cloudy; Urine Bacteria 1+ (Absent); Urine Bilirubin Negative (Negative); Urine Blood 3+ (Negative); Urine Color Straw; Urine Glucose Negative (Negative); Urine Ketones Negative (Negative); Urine Nitrite Negative (Negative); Urine Protein Negative (Negative); Urine Red Blood Cell 1+(3-5/hpf) (Absent); Urine Specific Gravity 1.002 (1.010-1.030); Urine Squamous Epithelial Cell Present (Absent); Urine Urobilinogen Negative (Negative); Urine White Blood Cell 3+(>20/hpf) (Absent)
== END 2018-10-15 19:39 | disposition left against medical advice (07) ==
LOC: ED 18:08
DX: Z53.21 Procedure and treatment not carried out due to patient leaving prior to being seen by health care provider (principal)
CPT/HCPCS: 81003; 81015; 87086; 99282

== ENCOUNTER 2018-12-23 13:14 | Emergency (ER) | payer OTHER ==
[2018-12-23 13:35] VITALS: BP 119/71
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
== END 2018-12-23 14:05 | disposition home or self-care (01) ==
LOC: UCEAST 13:14
DX: T21.21XA Burn of second degree of chest wall, initial encounter (principal); T22.10XA Burn of first degree of shoulder and upper limb, except wrist and hand, unspecified site, initial encounter; Z88.2 Allergy status to sulfonamides; X15.8XXA Contact with other hot household appliances, initial encounter; Y92.9 Unspecified place or not applicable
CPT/HCPCS: 99212; G0463

== ENCOUNTER 2023-08-22 11:47 | Inpatient (IN) ==
[~2023-08-22 11:47] MED LIST: HYDROmorphone 1 MG/1 ML SYRINGE IV SLOW PU PRN; NS 0.45% 1000 ml BAG 1,000 ML IV SCH; Naloxone 0.4 mg VIAL 0.4 mg/ml 1 ml VIAL IV PRN
[2023-08-22] MEDS ORDERED: Ondansetron 4 mg VIAL 2 MG/ML 2 ml VIAL ONE ×2 (12:18→16:06)
[2023-08-22] MEDS ORDERED: Dexamethasone IV 4 MG/ML VIAL 1 ml VIAL ONE (12:18)
[2023-08-22] MEDS ORDERED: Lidocaine 2% PF 5 ML VIAL ONE (12:18)
[2023-08-22] MEDS ORDERED: fentaNYL 250 mcg/5 ml 50 MCG/ML 5 ml VIAL (250 MCG) ONE (12:18)
[2023-08-22] MEDS ORDERED: Propofol 10 MG/ML 20 ML BTL ONE (12:18)
[2023-08-22] MEDS ORDERED: Midazolam 2 mg/2 ml VIAL 1 mg/ml 2 ml VIAL (2 mg) ONE (12:18)
[2023-08-22] MEDS ORDERED: ceFAZolin 2 GM PREMIX 2 GM/50 ML BAG ONE (12:26)
[2023-08-22] MEDS ORDERED: Heparin 5000 UNITS/ML 1 mL VIAL ONE (12:26)
[2023-08-22 12:35] LABS: Rapid COVID-19 Molecular Undetected (Undetected)
[2023-08-22] MEDS ORDERED: Bupivacaine 0.25% EPI 200,000 30 ML SDV ONE (13:14)
[2023-08-22] MEDS ORDERED: Rocuronium 50 mg VIAL 10 mg/ml 5 ml VIAL (50 mg) ONE (13:18)
[2023-08-22] MEDS ORDERED: Phenylephrine 40 mcg/mL 10mL (400mcg) SYRINGE ONE (14:08)
[2023-08-22] MEDS ORDERED: HYDROmorphone 1 MG/1 ML SYRINGE IV SLOW PU PRN (15:24)
[2023-08-22] MEDS ORDERED: HYDROmorphone 0.5 MG/0.5 ML SYRINGE IV SLOW PU PRN (15:24)
[2023-08-22] MEDS: Ondansetron 4 mg VIAL 2 MG/ML 2 ml VIAL IV PRN ×2 (16:09→22:22)
[2023-08-22] MEDS ORDERED: Scopolamine 1 mg/72hr PATCH ONE (16:59)
[2023-08-22] MEDS: Acetaminophen IV 1 GM/100ML 1,000 MG/100 ML BAG IV ONE (17:00)
[2023-08-22] MEDS: Buffered Lidocaine 1% SYRIN 1 ml INTRADERM ONE (17:00)
[2023-08-22] MEDS: Scopolamine 1 mg/72hr PATCH TRANSDERM ONE (17:00)
[2023-08-22] MEDS: Lactated Ringers 1000 ml BAG 1,000 ML IV SCH ×2 (17:01→20:24)
[2023-08-22] MEDS: Acetaminophen IV 1 GM/100ML 1,000 MG/100 ML BAG IV PRN (22:24)
[2023-08-22] MEDS: Heparin 5000 UNITS/ML 1 mL VIAL SUBCUT SCH (22:28)
[2023-08-23 06:26] LABS: ABS Lymphocytes 1.3 10^3/uL (1.0-4.8); ABS Monocytes 0.8 10^3/uL (0.0-0.9); ABS Neutrophils 11.4 10^3/uL (1.5-7.6); Hematocrit 34.9 % (35-45); Hemoglobin 11.4 g/dL (11.5-14.3); Lymphocyte % 9.3 %; Mean Corpuscular Hemoglobin 28.7 pg (27-33); Mean Corpuscular Hgb Conc 32.7 g/dL (31-36); Mean Corpuscular Volume 87.9 fL (80-97); Mean Platelet Volume 8.1 fL (7.5-11.2); Platelet Count 247 10^3/uL (150-450); Red Blood Count 3.97 10^6/uL (3.63-4.92); Red Cell Distribution Width 14.2 % (12-17); White Blood Count 13.5 10^3/uL (3.8-11.8)
[2023-08-23 13:56] VITALS: BP 104/59
[2023-08-23] MEDS ORDERED: D5W 1/2 NS KCl 20 meq 1000 ml 1,000 ML IV SCH (16:00)
== END 2023-08-23 17:15 | disposition home or self-care (01) | DRG 421 ==
LOC: SSU 11:47 → OR 11:47 → OBSVTOIN 20:03
PROVIDERS: ADMIT Surgery; ATTEND Surgery